=== PATIENT | female | born 1985 | race Caucasian/White ===

== ENCOUNTER 2016-09-13 07:44 | Outpatient (CLI) | payer BC ==
--- NOTE | 2016-09-13 14:13 | DIAGNOSTIC IMAGING REPORT ---
PROCEDURE: NM HEPATOBILIARY IMAGING INDICATION: ABDOMINAL PAIN;WEAKNESS TECHNIQUE: 8.0 mCi of technetium-99m Choletec was injected intravenously and images were acquired over a one hour time interval. Subsequently, a meal of fatty milk was given. Scintigraphic images were obtained over the next 60 minutes with calculation of gallbladder ejection fraction. COMPARISON: None. FINDINGS: There is homogeneous uptake of radiotracer in the liver. There is appearance of the intrahepatic and extrahepatic bile ducts at 13 minutes, and appearance of the gallbladder by 16 minutes. There was continued filling of the gallbladder throughout the first 60 minutes but no evidence of radiotracer passage into the duodenum. Following administration of fatty milk, there was passage of radiotracer into the intestines initially at approximately 1-2 minutes. Gallbladder emptying was minimal. Gallbladder ejection fraction is 2% at 60 minutes. There was further passage of radiotracer through small intestines and appropriate clearance of radiotracer from the liver. IMPRESSION: 1. Abnormally low, nearly absent gallbladder contraction. Gallbladder ejection fraction calculated to be 2% at 60 minutes. This can be seen in chronic cholecystitis and biliary dyskinesia. 2. Patent cystic duct and common duct.
== END 2016-09-14 17:56 ==
LOC: NM SRH 07:44
DX: R93.3 Abnormal findings on diagnostic imaging of other parts of digestive tract (principal); R10.9 Unspecified abdominal pain; R53.83 Other fatigue

== ENCOUNTER 2016-11-02 09:12 | Day surgery (SDC) | payer BC ==
[2016-11-02] VITALS (8 sets, daily range): BP systolic 119–130; BP diastolic 81–89
[~2016-11-02] VITALS: Ht 165.1 cm; Wt 81.0 kg
[~2016-11-02 09:12] MED LIST: ALBUTEROL HFA60 DOSE IN; FISH OIL PO; FLONASE AL50 MCG/ACT; NORTRIPTYLINE H10 MG PO; ORTHO-NOVUM 1/31 TAB PO; ST JOHNS WORT PO
[2016-11-02] MEDS ORDERED: DEMEROL50 MG PO (14:11)
--- NOTE | 2016-11-02 14:12 | Provider's Discharge Care Plan ---
Problem, Goal, Plan Problem List 1. Chronic cholecystitis
--- NOTE | 2016-11-02 14:12 | Provider's Discharge Care Plan ---
Problem, Goal, Plan Problem List 1. Chronic cholecystitis
--- NOTE | 2016-11-02 14:35 | DIAGNOSTIC IMAGING REPORT ---
PROCEDURE: XR INTRAOPERATIVE LAP DAVID INDICATION: ABNORMAL HIDA SCAN TECHNIQUE: Study performed and contrast injected by Dr. Haskins Fluoroscopy time 18-second (5.0 mGy. COMPARISON: Compared to nuclear medicine biliary scan on 09/13/[address] abdomen (10/25/2009. FINDINGS: Two AP C-arm views. Common duct is normal and there is no evidence of obstruction. IMPRESSION: 1. Negative intraoperative cholangiogram.
--- NOTE | 2016-11-02 14:42 | OPERATIVE REPORT ---
DATE OF SURGERY: 11/02/2016 SURGEON: Brad Haskins MD HEALTH OUTREACH WORKER: Libby Swenson III, MD PREOPERATIVE DIAGNOSIS: 1. Chronic cholecystitis POSTOPERATIVE DIAGNOSIS: 1. Chronic cholecystitis PROCEDURE PERFORMED: 1. Laparoscopic cholecystectomy with cholangiography ANESTHESIA: General. INDICATIONS: The patient is a 31-year-old woman with recurrent food-induced right upper quadrant abdominal pain. She had an abnormal HIDA scan. SURGICAL TECHNIQUE: The patient was taken to the operating room where a general anesthetic was administered and the patient was placed in the supine position. Orogastric tube, IV antibiotics, and sequential compression devices were in place. A local anesthetic of 0.5% Marcaine with epinephrine was used at each incision site. An intraumbilical incision was made and a Veress needle used to insufflate the abdominal cavity. A 10 mm cannula was passed and 3 additional cannulas were placed in the usual locations. The gallbladder was elevated, and omental adhesions taken down with cautery and blunt dissection. The cystic duct was isolated at the neck of the gallbladder. A clip was placed and a fluoroscopic cholangiogram carried out. Insertion of the cholangiogram cannula could not be done high in the neck of the gallbladder, as there appeared to be some type of obstruction or constriction. The cystic duct was dissected about 5 mm further down and a new opening made, and this allowed passage of the cholangiogram catheter. The cholangiogram was performed, and this demonstrated no persistent filling defects. There was free flow into the duodenum and retrograde filling into the liver. The cystic duct and artery were doubly clipped and divided and gallbladder stripped from the gallbladder fossa using electrocautery. The gallbladder was delivered to the upper midline trocar site where it was suctioned free of contents, extracted and submitted for histopathology. The gallbladder bed was inspected and irrigated and found to be completely hemostatic, with no sign of bile leak. Fluid was suctioned away, additional Marcaine instilled and gas was evacuated. The midline trocar sites were closed at the skin with interrupted subcuticular 4-0 Vicryl suture. Steri-Strips and dressings were placed at all sites, and the patient left the operating room in good condition. No intraoperative complications were encountered.
== END 2016-11-02 18:40 | disposition home or self-care (01) ==
LOC: OR SRH 09:12 → SCU SRH 09:16 → OR SRH 11:30 → ACUTE2 SRH 14:38 → OR SRH 18:40
PROVIDERS: Surgery
PROC: 0FT44ZZ Resection of Gallbladder, Percutaneous Endoscopic Approach (ICD-10-PCS; principal; 2016-11-02 11:30)
PROC: BF131ZZ Fluoroscopy of Gallbladder and Bile Ducts using Low Osmolar Contrast (ICD-10-PCS; principal; 2016-11-02 11:30)
DX: K81.1 Chronic cholecystitis (principal); J45.909 Unspecified asthma, uncomplicated